=== PATIENT | female | born 1990 | race Asian ===

== ENCOUNTER 2020-07-19 16:51 | Emergency (ER) | payer OTHER ==
[~2020-07-19] VITALS: Ht 157.5 cm; Wt 52.2 kg
[2020-07-19 18:14] VITALS: BP_SYST 120
--- NOTE | 2020-07-19 18:20 | NUR ---
SENT TO WAITING ROOM
[2020-07-19 19:00] VITALS: BP_SYST 120
--- NOTE | 2020-07-19 19:00 | NUR ---
EXAMINED BY MD, Patient given written and verbal discharge instructions and verbalizes understanding. ER MD discussed with patient the results and treatment provided. Patient in stable condition. ID arm band removed. Rx of NONE given. Patient educated on pain management and to follow up with PMD. Pain Scale 0/10 Opportunity for questions provided and answered. Medication side effect fact sheet provided.
== END 2020-07-19 19:00 | disposition home or self-care (01) ==
LOC: SED 16:51
DX: S06.0X0A Concussion without loss of consciousness, initial encounter (principal); W22.8XXA Striking against or struck by other objects, initial encounter; Y93.89 Activity, other specified; Y92.89 Other specified places as the place of occurrence of the external cause; Y99.0 Civilian activity done for income or pay
CPT/HCPCS: 99281